=== PATIENT | male | born 1990 | race Caucasian/White ===

== ENCOUNTER 2019-01-02 02:24 | Emergency (ER) | payer OTHER ==
[~2019-01-02] VITALS: Ht 172.7 cm; Wt 74.8 kg
[2019-01-02 02:36] VITALS: BP_SYST 151
[2019-01-02 02:45] VITALS: BP_SYST 140
== END 2019-01-02 02:36 ==
LOC: SED 02:24
DX: Z02.2 Encounter for examination for admission to residential institution (principal)